=== PATIENT | male | born 1995 | race Caucasian/White ===

== ENCOUNTER 2020-08-12 11:11 | Emergency (ER) | payer OTHER ==
[~2020-08-12 11:11] MED LIST: IBUPROFEN600 MG PO; IBUPROFEN800 MG PO; LODINE CAP 300300 MG PO; Voltaren Gel 1 % TOP
[2020-08-12] MEDS ORDERED: MEDROL DOSEPAK 24 MG PO (13:57)
[2020-08-12] MEDS ORDERED: IBUPROFEN600 MG PO (13:57)
[2020-08-12] MEDS ORDERED: NORFLEX 100 MG100 MG PO (13:57)
== END 2020-08-12 13:49 | disposition home or self-care (01) ==
LOC: ER1 11:11
DX: M54.5 Low back pain (principal); E03.9 Hypothyroidism, unspecified; Z79.899 Other long term (current) drug therapy; F17.290 Nicotine dependence, other tobacco product, uncomplicated
CPT/HCPCS: 72100; 96372; 99283; J1885; J2930

== ENCOUNTER 2020-12-19 14:18 | Emergency (ER) | payer OTHER ==
[~2020-12-19 14:18] MED LIST changes: +MEDROL DOSEPAK 24 MG PO; +NORFLEX 100 MG100 MG PO
[2020-12-19 14:50] LABS: HEMOGLOBIN 15.5 gm/dl (14.0-17.5); RED BLOOD COUNT 4.97 M/UL (4.20-5.50); WHITE BLOOD COUNT 5.9 K/UL (4.5-11.0)
[2020-12-19 15:10] LABS: BUN/CREATININE RATIO 12 (0-10)
[2020-12-19] MEDS ORDERED: CEPHALEXIN500 M1 PO (16:01)
[2020-12-19] MEDS ORDERED: ZOFRAN ODT 4 MG4 MG SL (16:01)
== END 2020-12-19 17:03 | disposition home or self-care (01) ==
LOC: ER1 14:18
DX: K52.9 Noninfective gastroenteritis and colitis, unspecified (principal); N39.0 Urinary tract infection, site not specified; F17.200 Nicotine dependence, unspecified, uncomplicated; Z90.89 Acquired absence of other organs
CPT/HCPCS: 80053; 81001; 83690; 85025; 87086; 96374; 99284; J2405; J7030